=== PATIENT | female | born 1995 | race Caucasian/White ===

== ENCOUNTER 2017-03-21 18:41 | Emergency (ER) | payer MEDICAID ==
[2017-03-21 19:13] LABS: BASOPHILS 0.4 % (0-2); EOSINOPHILS 4.1 % (0-7); HEMATOCRIT 38.1 % (36.0-48.0); HEMOGLOBIN 12.9 g/dL (12-16); IMMATURE GRANULOCYTES 0.2 % (0-5); LYMPHOCYTES 34.2 % (15-50); MCH 34.7 pg (26.0-34.0); MCHC 33.9 g/dL (31.0-37.0); MCV 102.4 fL (80.0-100.0); MONOCYTES 10.3 % (2-11); NEUTROPHILS 50.8 % (40-80); PLATELET COUNT 138 10x3/uL (130-400); RBC 3.72 10x6/uL (4.00-5.40); WBC 5.6 10x3/uL (4.8-10.8)
[2017-03-21 19:24] LABS: HCG SERUM NEGATIVE (NEGATIVE)
[2017-03-21 19:30] LABS: ACETAMINOPHEN 22.8 ug/mL (10.0-30.0); ALBUMIN 4.2 g/dL (3.4-5.0); ANION GAP 15.1 mmol/L (8-16); BILIRUBIN - TOTAL 0.55 mg/dL (0.2-1.3); CALCIUM 9.2 mg/dL (8.5-10.1); CARBON DIOXIDE 25.8 mmol/L (21.0-32.0); CREATININE - SERUM 1.1 mg/dL (0.6-1.3); POTASSIUM - SERUM 3.9 mmol/L (3.5-5.1); PROTEIN - SERUM 7.3 g/dL (6.4-8.2)
== END 2017-03-21 22:38 | disposition short-term general hospital (02) ==
LOC: D.ER 18:41
PROVIDERS: Emergency Medicine
DX: T65.92XA Toxic effect of unspecified substance, intentional self-harm, initial encounter (principal); Y92.89 Other specified places as the place of occurrence of the external cause; J45.909 Unspecified asthma, uncomplicated; I50.9 Heart failure, unspecified